=== PATIENT | female | born 1990 | race African-American/Black ===

== ENCOUNTER 2019-11-02 10:36 | Emergency (ER) | payer OTHER, SELFPAY ==
--- NOTE | ~2019-11-02 | XR_ITS ---
XR ankle RT min 3V 11/02/2019 11:04 INDICATION: Right ankle pain PROCEDURE: 4 views right ankle COMPARISON: No prior studies for comparison. FINDINGS: Fracture, dislocation or subluxation is not identified. Ankle mortise intact. Small degener ative calcaneal enthesophyte. The soft tissues appear within normal limits. No foreign bodies are id entified. IMPRESSION: 1: NO ACUTE BONE OR JOINT ABNORMALITY IDENTIFIED. Reviewed, dictated and finalized at location A.
--- NOTE | 2019-11-02 10:49 | ED.LOWEXIN ---
HPI - Extremity Injury (Lower) General Chief Complaint: Extremity Injury, Lower Stated Complaint: ankle injury Time Seen by Provider: 11/02/19 11:06 Source: patient and RN notes reviewed Mode of arrival: ambulatory Limitations: no limitations History of Present Illness HPI Narrative: 29-year-old female presents with concern for right ankle injury. Reports yesterday while at work she slipped and twisted her ankle causing pain to the lateral ankle and dorsal aspect of the foot. She denies decreased strength, decreased sensation. complaint: ankle injury Related Data Home Medications Medication Instructions Recorded Confirmed Allergy Med. 11/02/19 Bc Pill 11/02/19 Depression 11/02/19 Stool Softner 11/02/19 Allergies Allergy/AdvReac Type Severity Reaction Status Date / Time codeine Allergy Unknown Rash Verified 08/26/18 10:23 morphine AdvReac Intermediate makes me Verified 08/26/18 14:13 faint Review of Systems Review of Systems: Narrative: CONSTITUTIONAL: Denies malaise, chills, sweats, or fever. CARDIOVASCULAR: Denies chest pain, palpitations RESPIRATORY: Denies dyspnea. SKIN: Denies bruising, redness MUSCULOSKELETAL: Reports right lateral ankle pain, right dorsal foot pain NEUROLOGIC: Denies numbness, weakness All systems reviewed & are unremarkable except as noted in HPI and below PMFSH Comments At time of signature, agree with nursing past medical, surgical, social and family history. There is no relevant family history pertinent to the presenting complaint Exam Narrative: Exam Narrative: GENERAL: Well-appearing, well-nourished, and in no acute distress. HEAD: Normocephalic, atraumatic. EYES: PERRLA, conjunctivae clear NECK: Supple. CHEST: Speaks in full sentences. No respiratory distress. HEART: Regular rate and rhythm. Normal and equal peripheral pulses. EXTREMITIES: Right ankle, foot, digits have normal strength and sensation, normal range of motion. Small amount of right lateral ankle edema 5/5 strength with digit and ankle flexion and extension. Normal sensation with sensitivity to light touch and pain. No open wounds, no skin tenting, no devitalized tissue or atrophy, no trophic changes, no ecchymosis, no obvious deformity, alignment normal, no point tenderness, nearby joints and structures intact. Distal pulses palpable and equal bilaterally, skin warm, dry, pink. Capillary refill less than 3 seconds. SKIN: Warm, dry, no rash. NEURO: Alert and oriented x3. PSYCH: Normal mood and affect Course Course Emergency Course: Patient is aware of diagnosis, understands and agrees to treatment plan. Anticipatory guidance given. Patient agrees to follow-up as directed and is aware of reasons to seek care at the emergency department. Portions of this record may have been created with voice recognition software Vital Signs Vital signs: Vital Signs Temperature 97.8 F 11/02/19 10:54 Pulse Rate 79 11/02/19 10:54 Respiratory Rate 16 11/02/19 10:54 Blood Pressure 125/78 11/02/19 10:54 Pulse Oximetry 100 11/02/19 10:54 Temperature 97.8 F 11/02/19 10:54 Pulse Rate 79 11/02/19 10:54 Respiratory Rate 16 11/02/19 10:54 Blood Pressure 125/78 11/02/19 10:54 Pulse Oximetry 100 11/02/19 10:54 Reviewed. MDM - Extremity Injury (Lower) MDM Narrative Medical decision making narrative: Patients injury and/or pain is consistent with musculoskeletal etiology. No signs of neurological or vascular compromise on exam. Compartments and tissues are soft without signs of compartment syndrome. Pain is felt appropriate for further evaluation on an outpatient basis. Differential Diagnosis Differential diagnosis: Likely ankle sprain and strain and ankle fracture Imaging Data My impression: Images reviewed, interpreted by radiologist, agree, see report. Radiologist's impression: XR ankle RT min 3V 11/02/2019 11:04 INDICATION: Right ankle pain PROCEDURE: 4 views right ankle C
[2019-11-02 10:54] VITALS: BP 125/78; PULSE 79; RESP 16; TEMP 36.6; O2SAT 100
== END 2019-11-02 11:21 | disposition home or self-care (01) ==
PROVIDERS: Emergency Provider Nurse Practitioner
DX: S96.911A Strain of unspecified muscle and tendon at ankle and foot level, right foot, initial encounter (principal); S93.401A Sprain of unspecified ligament of right ankle, initial encounter; X50.9XXA Other and unspecified overexertion or strenuous movements or postures, initial encounter; W18.40XA Slipping, tripping and stumbling without falling, unspecified, initial encounter
CPT/HCPCS: 73610; 99213; G0463

== ENCOUNTER 2019-11-22 07:21 | Inpatient (IN) | payer OTHER, SELFPAY ==
[2019-11-22] VITALS (23 sets, daily range): BP systolic 115–168; BP diastolic 62–103; PULSE 74–104; RESP 12–32; TEMP 36–36.8; O2SAT 97–100; BMI 38.1
--- NOTE | ~2019-11-22 | XR_ITS ---
XR chest 1V portable DATE: 11/24/2019 13:53 INDICATION: Shortness of breath TECHNIQUE: Portable upright AP chest on 11/24/2019 at 1351 hours COMPARISON: 11/23/2019 portable AP chest at 0855 hours FINDINGS: Normal heart size. No hilar or mediastinal enlargement. No pulmonary infiltrate or consolid ation, pleural effusion or pulmonary vascular congestion or pneumothorax. IMPRESSION: No active cardiopulmonary disease Reviewed, dictated and finalized at location A.
--- NOTE | ~2019-11-22 | US_ITS ---
US venous doppler [facility] DATE: 11/24/2019 14:43 INDICATION: Bilateral leg pain, sensitivity TECHNIQUE: Real-time and color flow imaging and Doppler analysis of the veins of the lower extremitie s COMPARISON: None FINDINGS: The greater saphenous veins are patent. There is spontaneous and phasic flow and normal aug mentation and color flow signal and normal compression of the deep veins of both lower extremities. IMPRESSION: No evidence of deep venous thrombosis of the lower extremities Reviewed, dictated and finalized at Location A. Reviewed, dictated and finalized at location A.
--- NOTE | ~2019-11-22 | XR_ITS ---
XR chest 1V portable DATE: 11/22/2019 07:47 INDICATION: Respiratory failure. Asthma. TECHNIQUE: Portable upright AP chest on 11/22/2019 at 0745 hours COMPARISON: 08/26/2018 portable AP chest at 1047 FINDINGS: Normal heart size. No hilar or mediastinal enlargement. The lungs appear normally inflated. No pulmonary infiltrate or consolidation, pleural effusion or pulmonary vascular congestion or pneum othorax is evident. IMPRESSION: No active cardiopulmonary disease Reviewed, dictated and finalized at location A.
--- NOTE | ~2019-11-22 | XR_ITS ---
EXAMINATION: XR chest 1V portable DATE: 11/23/2019 08:58 INDICATION: Chest pain and shortness of breath TECHNIQUE: frontal view of the chest was obtained. COMPARISON: Chest radiograph dated 11/22/2019 FINDINGS: Patient is rotated slightly towards the right. Elevation of the right hemidiaphragm with decreased ri ght lung volume. No focal airspace opacities, pulmonary edema, pleural effusion or pneumothorax. The cardiomediastinal silhouette is normal. IMPRESSION: 1. Elevation of the right hemidiaphragm. No other acute cardiopulmonary disease. Reviewed, dictated and finalized at location A. IMPRESSION: 1. Elevation of the right hemidiaphragm. No other acute cardiopulmonary disease .
--- NOTE | ~2019-11-22 | XR_ITS ---
XR UGI w esoph water soluble DATE: 11/25/2019 14:49 INDICATION: Periodic postprandial vomiting TECHNIQUE: Single contrast examination with water-soluble contrast material 2.4 minutes fluoroscopy time DAP: 32.453 35 images COMPARISON: None FINDINGS: No stricture, intraluminal mass lesion or obstruction of the esophagus is evident. There is no abnormal distention of the esophagus or stomach no obvious intraluminal mass lesion or ulceration of the stomach is evident. The patient vomited the contrast material, without sufficient contrast ma terial reaching the duodenum for evaluation of the duodenal bulb or C-loop. No abnormal bowel distent ion is evident. Surgical clips, right upper quadrant, consistent with cholecystectomy. IMPRESSION: Limited examination due to vomiting Reviewed, dictated and finalized at Location A. Reviewed, dictated and finalized at location A.
[2019-11-22] MEDS: ALBUTEROL SULFATE NEB 2.5 MG/3 ML INH 5 MG (07:23)
--- NOTE | 2019-11-22 07:29 | ED.SOB ---
HPI - SOB/Dyspnea General Chief Complaint: Shortness of Breath/Dyspnea Stated Complaint: SOB Time Seen by Provider: 11/22/19 07:23 Source: patient Mode of arrival: EMS Limitations: clinical condition History of Present Illness HPI Narrative: Patient is a 29-year-old female who presents to the emergency department with complaint of shortness of breath. Patient has known history of asthma. Patient found by EMS to be in respiratory distress. Patient was given nebulizer treatment in route by EMS. Patient oxygen saturations in the 90s. Patient reports her symptoms started this morning. Patient reports a cough and denies any fever. History is limited as patient is in respiratory distress. She does have a known history of asthma and has been hospitalized with status asthmaticus requiring BiPAP in the past. Patient denies any recent illness or sick contacts. MD elicited complaint: shortness of breath Pertinent past history: asthma Onset (ago): hour(s) Timing: constant Associated symptoms: cough Treatment prior to arrival: oxygen and bronchodilator Related Data Home Medications Medication Instructions Recorded Confirmed albuterol sulfate 2 puff INHALATION QID PRN 11/22/19 11/22/19 albuterol sulfate 2.5 mg INHALATION Q6H PRN 11/22/19 11/22/19 bisacodyl 10 mg PO ONCE PRN 11/22/19 11/22/19 budesonide [Pulmicort Flexhaler] 1 inh INHALATION DAILY 11/22/19 11/22/19 bupropion HCl 150 mg PO QAM 11/22/19 diphenhydramine HCl 25 mg PO Q6H PRN 11/22/19 11/22/19 docusate sodium 100 mg PO BID 11/22/19 11/22/19 fenofibrate 160 mg PO DAILY 11/22/19 11/22/19 ibuprofen 600 mg PO Q6H PRN 11/22/19 montelukast 10 mg PO DAILY 11/22/19 11/22/19 norgestimate-ethinyl estradiol 1 tablet PO DAILY 11/22/19 11/22/19 omega [id number]-dpb-fish oil [Fish Oil] 2 cap PO BID 11/22/19 11/22/19 ondansetron 4 mg PO Q8H PRN 11/22/19 11/22/19 pantoprazole 40 mg PO QAM 11/22/19 11/22/19 prochlorperazine [Compro] 25 mg ME Q12H PRN 11/22/19 11/22/19 sertraline 100 mg PO DAILY 11/22/19 11/22/19 Allergies Allergy/AdvReac Type Severity Reaction Status Date / Time codeine Allergy Unknown Rash Verified 11/22/19 09:07 morphine AdvReac Intermediate makes me Verified 11/22/19 09:07 faint Review of Systems Review of Systems: All systems reviewed & are unremarkable except as noted in HPI and below (Limited due to respiratory distress) Constitutional: Constitutional: Denies fever(s) Respiratory: Respiratory: Reports cough, Reports dyspnea and Reports wheezing PMFSH Past Medical History Medical History ADHD Asthma Autism spectrum disorder Depression GERD (gastroesophageal reflux disease) Mild intellectual disability Seborrheic dermatitis Sleep apnea Surgical History Surgical History History of cholecystectomy History of strabismus surgery Family History Family History Mother Diabetes mellitus Father Unknown family medical history Social History Social History (Updated 11/22/19 @ 13:41 by Karel Connell MD) Social History: Patient lives in a fci; she has her own room. She denies tobacco, alcohol or drug use. She is a full code. She nominates her mother to be the individual who would make medical decisions for her if she is unable. Smoking status: Never smoker Alcohol intake: never Substance use: never Substance use type: does not use Gender identity (if verbalized by the patient): Female Spiritual care concerns: No Exam Const: General: cooperative, no acute distress and alert Nutritional Appearance: obese Orientation/consciousness: patient oriented x3 Limitations: no limitations HENMT: Mouth: Yes lip normal and Yes moist mucous membranes Resp: Effort & Inspection: labored, respiratory distress, retractions, tachypneic, uses accessory muscles and prolong
[2019-11-22] MEDS: ALBUTEROL SULFATE NEB 2.5 MG/0.5 ML INH 15 MG INHALATION ×2 (07:30→22:00)
[2019-11-22] MEDS: IPRATROPIUM BR 0.02% INH SOLN 0.5 MG/2.5 ML VIAL 1.5 MG INHALATION (07:30)
[2019-11-22 07:37] LABS: Alveolar/Arterial O2 Gradient 642.3 mmHg; Base Excess ABG 0.1 mEq/l (+/-2.0); Fractional Inspired Oxygen 100 %; Oxygen Content ABG 7.6 %vol (16.0-22.0); Oxyhemoglobin 38.8 % THb (90.0-100.0); PCO2 ABG 46.9 mmHg (35.0-45.0); Total Hemoglobin 13.9 g/dL (12.0-18.0); pH ABG 7.362 (7.350-7.450)
[2019-11-22] MEDS: MAGNESIUM SULF 2 GM/WATER 50ML 2 GM/50 ML BAG IVPB (07:38)
[2019-11-22] MEDS: methylPREDNISolone SOD SUCC 125 MG VIAL IV PUSH (07:39)
[2019-11-22 07:42] LABS: Oxygen Saturation ABG 39.7 % (95.0-100.0); PO2 ABG 23.8 mmHg (80.0-100.0)
[2019-11-22 07:43] LABS: Device NON-REBREATHER MASK; Modified Allen's Test Pass; Site Drawn RIGHT RADIAL
--- NOTE | 2019-11-22 07:49 | ECG_ITS ---
Measurements Intervals [place] Rate: 108 P: 56 TN: 134 QRS: 50 QRSD: 89 T: 60 QT: 332 QTc: 446 Interpretive Statements SINUS TACHYCARDIA ATRIAL PREMATURE COMPLEXES NONSPECIFIC T-WAVE ABNORMALITY- DIFFUSE LEADS BASELINE ARTIFACT- I, II, III, AVR, AVL, AVF, V4-V6 ABNORMAL ECG Electronically Signed On 11-22-2019 8:13:31 CDT by José Miguel Escobar D.O.
[2019-11-22 07:53] LABS: Alveolar/Arterial O2 Gradient 42.6 mmHg; Base Excess ABG -1.4 mEq/l (+/-2.0); Carboxyhemoglobin 0.3 % THb (0-2.0); Fractional Inspired Oxygen 100 %; HCO3 ABG 19.6 mEq/l (22.0-26.0); Methemoglobin ABG 0.3 %THb (0-1.5); Oxygen Content ABG 20.4 %vol (16.0-22.0); Oxygen Saturation ABG 99.9 % (95.0-100.0); Oxyhemoglobin 98.7 % THb (90.0-100.0); PO2 ABG 646.4 mmHg (80.0-100.0); PO2 FiO2 Ratio Arterial Blood 6.46 %; Reduced Hemoglobin 0.7 %THb (0-5.0); Total Hemoglobin 13.4 g/dL (12.0-18.0)
[2019-11-22 07:54] LABS: Device NON-INVASIVE VENT; Non-Invasive Expiratory Pressure 5 CMH2O; Non-Invasive Inspiratory Pressure 15 CMH2O; Non-Invasive Vent Rate 12 /MIN; Site Drawn RIGHT BRACHIAL
[2019-11-22 08:49] LABS: Basophils Percent Auto 0.4 % (0.2-1.2); Eosinophils Absolute Auto 0.1 K/mm3 (0-0.3); Eosinophils Percent Auto 1.6 % (0-4.4); Hemoglobin 12.2 g/dL (12.0-15.0); Immature Granulocyte Absolute 0.04 K/mm3 (0.00-0.031); Immature Granulocyte Percent A 0.7 % (0-0.5); Lymphocytes Absolute Auto 2.49 K/mm3 (0.9-3.2); Lymphocytes Percent Auto 44.7 % (18.3-44.2); Mean Corpuscular HGB Conc 33.9 g/dl (32-36); Mean Corpuscular Hemoglobin 31.1 pg (26-34); Mean Corpuscular Volume 91.8 fl (80-100); Mean Platelet Volume 10.2 fl (7.4-10.4); Monocytes Absolute Auto 0.4 K/mm3 (0.1-0.6); Monocytes Percent Auto 6.8 % (2.6-8.5); Neutrophils Absolute Auto 2.6 K/mm3 (1.3-6.7); Neutrophils Percent Auto 45.8 % (45.5-73.1); Platelet Count Result 453 k/mm3 (150-375); Red Blood Count 3.92 M/mm3 (4.2-5.4); Red Cell Distribution Width 12.5 % (11.5-14.5); White Blood Count 5.6 K/mm3 (4.5-10.0)
[2019-11-22 09:12] LABS: Alanine Aminotransferase 22 U/L (4-35); Albumin Level 3.8 g/dL (3.5-5.1); Alkaline Phosphatase 58 U/L (38-126); Aspartate Amino Transferase 28 U/L (14-36); Bilirubin,Total 0.3 mg/dL (0.2-1.3); Blood Urea Nitrogen 9 mg/dL (7-17); Calcium 8.9 mg/dL (8.4-10.2); Carbon Dioxide 26 mmol/L (22-30); Chloride 106 mmol/L (98-107); Estimated CRCL calculation 84 ml/min; Estimated Glomerular Filt Rate > 60; Glucose 109 mg/dL (65-105); Potassium 3.3 mmol/L (3.4-5.0); Sodium 135 mmol/L (137-145)
--- NOTE | 2019-11-22 11:04 | PC.NURSE ---
COVID swab obtained and sent to the lab.
--- NOTE | 2019-11-22 11:42 | ADMGEN ---
This patient, Radha Salazar, was admitted to Intensive Care Unit-2. Patient/family oriented to hospital policies and general routines including ID bracelet, bed and alarms, visiting hours, pain management, procedures, bathroom and other care routines, personal items, smoking policy, room service/diet, and visiting hours. Valuables list has been completed. Information on how to activate the Rapid Response Team has been discussed. Patient/Family are encouraged to report perceived risks to care and to ask questions if they do not understand what they are told or what they should do.
--- NOTE | 2019-11-22 12:47 | PM.IMHP ---
H&P: HPI History of Present Illness Chief complaint: acute respiratory failure,status asthmaticus Narrative: Radha Salazar is a 29 year old female with asthma, JANIA and intellectual disability here for SOB. Pt was diagnosed with asthma at 7 years of age. She is compliant with her asthma medication. She does use inhaled steroids and has a rescue inhaler. Her last exacerbation was here August 2018. She has not been intubated before but did require BiPAP at that hospitalization. She has not required any oral steroid since then. She uses her rescue inhaler 1 to 2 times a week on average. This morning around 5:00 a.m. patient awoke, took a shower and then sprayed a perfume on her body. She did return to bed and slept for about an hour but when she woke, she had tightness in her chest and difficulty breathing. She try to rescue inhaler without benefit. EMS was contacted. EMS found the patient respiratory distress. She is given nebulizer treatment. Pulse ox was in the 90% range. She was brought to the emergency room for evaluation. She denies any symptoms over the past few days prior to this morning. She denies any fever or chills. She denies any allergy symptoms. She is compliant with her CPAP. No sick contacts. She does have a cough productive yellow sputum. In the ED, patient was tachypneic at respiratory rate of 32 and tachycardic with the pulse 104. ABG showed pH 7.36 with a PCO2 of 47 and PO2 24 (mixed venous gas). CXR was clear. Patient was treated hour long nebulizer treatment, magnesium and IV steroids. She was placed on BiPAP. Patient was admitted for further care. Since admission, patient was able to be weaned off of BiPAP currently comfortable on 2 L. she does have nausea today but this is not uncommon for the patient. She states she has nausea chronically usually before eating but occasionally after eating as well. She does have issues with constipation but no diarrhea. No abdominal pain. Review of Systems Review of Systems: Narrative: Gen - No fever or chills Eye - no double vision or vision changes ENT - no hearing loss, tinnitus, odynophagia or dysphagia CV -as above Pulm -as above GI -as above - no dysuria or hematuria. ANIMAL CARE TECHNICIAN - She is on control and her periods are regular. She is sexually active and they use condoms as well. Neuro -she had some mild numbness in the right hand earlier today but that has resolved. There has been no numbness, tingling or weakness in her hands or legs recently. Psych -she has depression and anxiety. Symptoms have been well controlled. All systems reviewed & are unremarkable except as noted in HPI and below PMFSH Past Medical History Medical History ADHD Asthma Autism spectrum disorder Depression GERD (gastroesophageal reflux disease) Mild intellectual disability Seborrheic dermatitis Sleep apnea Surgical History Surgical History History of cholecystectomy History of strabismus surgery Family History Family History Mother Diabetes mellitus Father Unknown family medical history Social History Social History (Updated 11/22/19 @ 13:41 by Karel Connell MD) Social History: Patient lives in a care home; she has her own room. She denies tobacco, alcohol or drug use. She is a full code. She nominates her mother to be the individual who would make medical decisions for her if she is unable. Smoking status: Never smoker Alcohol intake: never Substance use: never Substance use type: does not use Gender identity (if verbalized by the patient): Female Spiritual care concerns: No Meds Home Medications and Allergies Home Medications Medication Instructions Recorded Confirmed Type albuterol sulfate 2 puff INHALATION QID PRN 11/22/19 11/22/19 History albuterol sulfate 2.
[2019-11-22] MEDS: ONDANSETRON INJ 4 MG/2 ML VIAL IV PUSH ×3 (13:20→21:53)
--- NOTE | 2019-11-22 13:21 | PC.NURSE ---
Addendum entered by Neo Bermudez RN 11/22/19 13:22: Patient completed lunch. Complain of nausea, large emesis noted. Zofran IVP x1 given. MD aware. Original Note: MD to bedside. Patient completed keysha
[2019-11-22 14:32] LABS: Beta HCG Quantitative < 2.39 mIU/ML
[2019-11-22] MEDS: ENOXAPARIN 40 MG/0.4 ML SYRINGE SUB-Q (15:37)
[2019-11-22] MEDS: PANTOPRAZOLE SODIUM IV 40 MG VIAL IV PUSH (15:37)
[2019-11-22] MEDS: methylPREDNISolone SOD SUCC 125 MG VIAL 60 MG IV PUSH ×2 (17:05→23:41)
[2019-11-22] MEDS: ALBUTEROL SULFATE (*SP) AEROSOL 1 PUFF 2 PUFF INHALATION ×2 (17:21→21:00)
--- NOTE | 2019-11-22 21:21 | PC.NURSE ---
Patient complaining of being sob, tight and wheezing. No relief from Inhaler. Carol Basilio bedside to see patient. order for Neb treatment
--- NOTE | 2019-11-22 21:46 | PC.NURSE ---
Partial relief from Neb treatment. Hour long treatment ordered from Carol RAMOS. Awaiting treatment
[2019-11-23] VITALS (20 sets, daily range): BP systolic 105–135; BP diastolic 67–84; PULSE 58–96; RESP 14–32; TEMP 36.3–36.7; O2SAT 97–100
[2019-11-23 04:37] LABS: Blood Urea Nitrogen 9 mg/dL (7-17); Calcium 9.1 mg/dL (8.4-10.2); Carbon Dioxide 25 mmol/L (22-30); Chloride 105 mmol/L (98-107); Estimated CRCL calculation 105 ml/min; Estimated Glomerular Filt Rate > 60; Glucose 131 mg/dL (65-105); Potassium 4.1 mmol/L (3.4-5.0); Sodium 136 mmol/L (137-145)
[2019-11-23] MEDS: methylPREDNISolone SOD SUCC 125 MG VIAL 60 MG IV PUSH ×3 (05:10→21:32)
[2019-11-23] MEDS: ALBUTEROL SULFATE (*SP) AEROSOL 1 PUFF 2 PUFF INHALATION ×4 (08:26→19:42)
[2019-11-23] MEDS: ACETAMINOPHEN 325 MG TABLET 650 MG PO ×2 (08:45→19:39)
[2019-11-23] MEDS: DOCUSATE SODIUM 100 MG CAPSULE PO ×2 (09:04→17:46)
[2019-11-23] MEDS: SERTRALINE HCL 50 MG TABLET 100 MG PO (09:05)
[2019-11-23] MEDS: buPROPion HCL XL (24 HR) 150 MG TABCR PO (09:05)
[2019-11-23] MEDS: ENOXAPARIN 40 MG/0.4 ML SYRINGE SUB-Q (09:05)
[2019-11-23] MEDS: FENOFIBRATE 160 MG TABLET PO (09:06)
[2019-11-23] MEDS: PANTOPRAZOLE SODIUM IV 40 MG VIAL IV PUSH (09:06)
[2019-11-23] MEDS: MONTELUKAST SODIUM 10 MG TABLET PO (09:06)
[2019-11-23] MEDS: OMEGA 3 POLYUNSAT FATTY ACIDS 1 GM CAP 2 GM PO ×2 (09:07→17:45)
--- NOTE | 2019-11-23 09:13 | PM.IMPN ---
Progress Note: A&P Assessment and Plan (1) Acute respiratory failure: Qualifiers: Respiratory failure complication: hypoxia Qualified Code(s): J96.01 - Acute respiratory failure with hypoxia Code(s): J96.00 - Acute respiratory failure, unspecified whether with hypoxia or hypercapnia Status: Acute Assessment and Plan: No longer on BiPAP as she required on admission. COVID-19 testing is still pending. Patient now on room air. Additional shortness of breath this morning appears to be more likely result of anxiety. Attempted to get ABG but unsuccessful. Repeat chest x-ray personally reviewed with elevation of the right hemidiaphragm but otherwise clear. Continue albuterol HFA for now. Will continue to monitor. Telemetry reviewed on 11/23/2019 with sinus rhythm. (2) Asthma: Qualifiers: Asthma complication type: with acute exacerbation Asthma persistence: persistent Asthma severity: moderate Qualified Code(s): J45.41 - Moderate persistent asthma with (acute) exacerbation Code(s): J45.909 - Unspecified asthma, uncomplicated Status: Acute Assessment and Plan: Patient with asthma exacerbation. Repeat chest x-ray as noted above. Continue scheduled albuterol HFA. Continue Pulmicort inhaler. Will continue IV steroids but start to wean. Will not initiate IV antibiotics given her current status. Add Mucinex. Continue Singulair. Will continue to monitor. (3) Anxiety: Code(s): F41.9 - Anxiety disorder, unspecified Status: Acute Assessment and Plan: Adding to shortness of breath issues. Will add oral lorazepam as needed. Will monitor. Does also have known mild intellectual disability which may be adding to anxiety. (4) Nausea & vomiting: Qualifiers: Vomiting Intractability: non-intractable Vomiting type: unspecified Qualified Code(s): R11.2 - Nausea with vomiting, unspecified Code(s): R11.2 - Nausea with vomiting, unspecified Status: Acute Assessment and Plan: No current nausea and vomiting. IV Zofran available as needed. Beta hCG quantitative test is negative. Will continue to monitor. (5) Sleep apnea: Qualifiers: Sleep apnea type: obstructive Qualified Code(s): G47.33 - Obstructive sleep apnea (adult) (pediatric) Code(s): G47.30 - Sleep apnea, unspecified Status: Acute Assessment and Plan: Plan to resume CPAP at night while hospitalized as long as COVID-19 testing negative. Will continue to monitor. (6) GERD (gastroesophageal reflux disease): Qualifiers: Esophagitis presence: esophagitis presence not specified Qualified Code(s): K21.9 - Gastro-esophageal reflux disease without esophagitis Code(s): K21.9 - Gastro-esophageal reflux disease without esophagitis Status: Acute Assessment and Plan: Will continue IV Protonix. Will monitor. (7) Depression: Qualifiers: Active/Remission status: in remission of unspecified degree Depression Type: major depressive disorder Major depression recurrence: unspecified whether recurrent Qualified Code(s): F32.5 - Major depressive disorder, single episode, in full remission Code(s): F32.9 - Major depressive disorder, single episode, unspecified Status: Acute Assessment and Plan: Will continue home sertraline and bupropion. Will monitor. (8) DVT prophylaxis: Code(s): Z29.9 - Encounter for prophylactic measures, unspecified Status: Acute Assessment and Plan: Lovenox. Time Spent With Patient Time with patient: 15 - 25 minutes Subjective Date/time seen: 11/23/19 09:13 Interval history: Date of Service: 11/23/2019. Admitted with acute respiratory failure, asthma exacerbation. Complains of shortness of breath, chest pain and cough productive of thick sputum. Feels scared. Also complains of headache and abdominal pain. Review of Systems Cons
[2019-11-23] MEDS: LORAZEPAM 0.5 MG TABLET PO (23:45)
--- NOTE | 2019-11-23 23:50 | PC.NURSE ---
Patient having Asthma attack. States feels weak and can't breathe. Audible wheezing noted. O2 sat 99%. PRN rescue inhaler given. No relief. Order for 1 hour neb treatment ordered. ICU respiratory notified.
[2019-11-23] MEDS: ALBUTEROL SULFATE NEB 2.5 MG/0.5 ML INH 15 MG INHALATION (23:57)
[2019-11-24] VITALS (18 sets, daily range): BP systolic 114–139; BP diastolic 61–82; PULSE 62–110; RESP 14–30; TEMP 36.3–37.1; O2SAT 97–100
--- NOTE | 2019-11-24 02:20 | PC.NURSE ---
Patient continues to sleep comfortably in bed, no distress noted.
[2019-11-24] MEDS: methylPREDNISolone SOD SUCC 125 MG VIAL 60 MG IV PUSH ×3 (05:44→21:11)
--- NOTE | 2019-11-24 06:00 | PC.NURSE ---
Patient to 231-1. IMU. Report given to Kadi TIJERINA. No questions. All belongings transferred.
--- NOTE | 2019-11-24 06:40 | PC.NURSE ---
This patient, Radha Salazar, was received from ICU-2 on 11/24/19 at 0600. REPORT FROM TERRY TIJERINA. Personal belongings list checked and signed. Patient/family oriented to unit policies and routines
[2019-11-24 08:11] LABS: Hemoglobin 13.6 g/dL (12.0-15.0); Mean Corpuscular HGB Conc 33.2 g/dl (32-36); Mean Corpuscular Hemoglobin 31.7 pg (26-34); Mean Corpuscular Volume 95.6 fl (80-100); Mean Platelet Volume 10.5 fl (7.4-10.4); Platelet Count Result 489 k/mm3 (150-375); Red Blood Count 4.29 M/mm3 (4.2-5.4)
[2019-11-24 08:26] LABS: Blood Urea Nitrogen 12 mg/dL (7-17); Calcium 9.3 mg/dL (8.4-10.2); Carbon Dioxide 26 mmol/L (22-30); Chloride 103 mmol/L (98-107); Estimated CRCL calculation 94 ml/min; Estimated Glomerular Filt Rate > 60; Glucose 109 mg/dL (65-105); Sodium 136 mmol/L (137-145)
[2019-11-24] MEDS: ALBUTEROL SULFATE (*SP) AEROSOL 1 PUFF 2 PUFF INHALATION ×4 (08:37→19:33)
[2019-11-24] MEDS: PANTOPRAZOLE SODIUM IV 40 MG VIAL IV PUSH (10:35)
[2019-11-24] MEDS: SERTRALINE HCL 50 MG TABLET 100 MG PO (10:35)
[2019-11-24] MEDS: OMEGA 3 POLYUNSAT FATTY ACIDS 1 GM CAP 2 GM PO ×2 (10:35→16:43)
[2019-11-24] MEDS: MONTELUKAST SODIUM 10 MG TABLET PO (10:36)
[2019-11-24] MEDS: FENOFIBRATE 160 MG TABLET PO (10:37)
[2019-11-24] MEDS: ENOXAPARIN 40 MG/0.4 ML SYRINGE SUB-Q (10:37)
[2019-11-24] MEDS: DOCUSATE SODIUM 100 MG CAPSULE PO ×2 (10:37→16:46)
[2019-11-24] MEDS: buPROPion HCL XL (24 HR) 150 MG TABCR PO (10:37)
[2019-11-24] MEDS: ACETAMINOPHEN 325 MG TABLET 650 MG PO (13:23)
[2019-11-24 13:53] LABS: Alveolar/Arterial O2 Gradient 12.6 mmHg; Base Excess ABG -4.3 mEq/l (+/-2.0); Fractional Inspired Oxygen 21 %; HCO3 ABG 19.6 mEq/l (22.0-26.0); Oxygen Content ABG 19.4 %vol (16.0-22.0); Oxygen Saturation ABG 97.5 % (95.0-100.0); Oxyhemoglobin 96.7 % THb (90.0-100.0); PCO2 ABG 32.8 mmHg (35.0-45.0); PO2 ABG 97.9 mmHg (80.0-100.0); PO2 FiO2 Ratio Arterial Blood 4.66 %; Total Hemoglobin 14.2 g/dL (12.0-18.0); pH ABG 7.395 (7.350-7.450)
[2019-11-24 13:56] LABS: Device ROOM AIR; Modified Allen's Test Pass; Site Drawn RIGHT RADIAL
[2019-11-24] MEDS: IPRATROPIUM BR 0.02% INH SOLN 0.5 MG/2.5 ML VIAL INHALATION (14:00)
[2019-11-24] MEDS: ALBUTEROL SULFATE NEB 2.5 MG/0.5 ML INH INHALATION (14:00)
--- NOTE | 2019-11-24 14:05 | PM.IMPN ---
Progress Note: A&P Assessment and Plan (1) Acute respiratory failure: Qualifiers: Respiratory failure complication: hypoxia Qualified Code(s): J96.01 - Acute respiratory failure with hypoxia Code(s): J96.00 - Acute respiratory failure, unspecified whether with hypoxia or hypercapnia Status: Acute Assessment and Plan: Required BiPAP on admission but quickly weaned off. Had already weaned to room air prior to episode this afternoon. COVID-19 testing negative. Previous chest x-rays clear. Repeat STAT chest x-ray done with episode this afternoon also clear. STAT ABG ordered with pCO2 32.8 and normal pH. PO2 97.9. Suspect patient becomes anxious with coughing. Intellectual disability also adding to situation. Albuterol and Atrovent nebulizer given x1. Otherwise will continue albuterol HFA and other home medications for asthma. Telemetry reviewed on 11/24/2019 with sinus rhythm. Venous Dopplers ordered of the lower extremities with no DVT seen. Continue to monitor. Total time spent in critical care today 35 minutes. (2) Asthma: Qualifiers: Asthma complication type: with acute exacerbation Asthma persistence: persistent Asthma severity: moderate Qualified Code(s): J45.41 - Moderate persistent asthma with (acute) exacerbation Code(s): J45.909 - Unspecified asthma, uncomplicated Status: Acute Assessment and Plan: Patient with asthma exacerbation. Chest x-rays remains clear. Will continue scheduled albuterol HFA, Pulmicort inhaler and Singulair. Continue Mucinex. Will leave IV steroids at current rate today. Will add Tessalon Perles to help with cough. Will monitor. (3) Anxiety: Code(s): F41.9 - Anxiety disorder, unspecified Status: Acute Assessment and Plan: Adding to shortness of breath issues. Did have lorazepam before midnight last night but has not had since. Will leave lorazepam as needed. Will monitor. Does also have mild intellectual disability adding to current situation. (4) Nausea & vomiting: Qualifiers: Vomiting Intractability: non-intractable Vomiting type: unspecified Qualified Code(s): R11.2 - Nausea with vomiting, unspecified Code(s): R11.2 - Nausea with vomiting, unspecified Status: Acute Assessment and Plan: No current nausea and vomiting. IV Zofran remains available as needed. Beta hCG quantitative test is negative. Will continue to monitor. (5) Sleep apnea: Qualifiers: Sleep apnea type: obstructive Qualified Code(s): G47.33 - Obstructive sleep apnea (adult) (pediatric) Code(s): G47.30 - Sleep apnea, unspecified Status: Acute Assessment and Plan: Will resume CPAP with COVID-19 testing negative. Will monitor. (6) GERD (gastroesophageal reflux disease): Qualifiers: Esophagitis presence: esophagitis presence not specified Qualified Code(s): K21.9 - Gastro-esophageal reflux disease without esophagitis Code(s): K21.9 - Gastro-esophageal reflux disease without esophagitis Status: Acute Assessment and Plan: Will continue IV Protonix. Will monitor. (7) Depression: Qualifiers: Active/Remission status: in remission of unspecified degree Depression Type: major depressive disorder Major depression recurrence: unspecified whether recurrent Qualified Code(s): F32.5 - Major depressive disorder, single episode, in full remission Code(s): F32.9 - Major depressive disorder, single episode, unspecified Status: Acute Assessment and Plan: Will continue home sertraline and bupropion. Will monitor. (8) DVT prophylaxis: Code(s): Z29.9 - Encounter for prophylactic measures, unspecified Status: Acute Assessment and Plan: Lovenox. Time Spent With Patient Time with patient: 15 - 25 minutes Subjective Date/time seen: 11/24/19 14:05 Interval history: Date of Service:
[2019-11-24] MEDS: BENZONATATE 100 MG CAPSULE 200 MG PO ×2 (16:47→21:11)
[2019-11-25] VITALS (25 sets, daily range): BP systolic 119–152; BP diastolic 77–109; PULSE 58–110; RESP 12–22; TEMP 35.7–36.6; O2SAT 77–100; BMI 10.0
[2019-11-25] MEDS: ALBUTEROL SULFATE (*SP) AEROSOL 1 PUFF 2 PUFF INHALATION ×2 (00:16→08:57)
[2019-11-25] MEDS: LORAZEPAM 0.5 MG TABLET PO (00:27)
[2019-11-25] MEDS: ALBUTEROL SULFATE NEB 2.5 MG/0.5 ML INH 15 MG INHALATION (00:29)
[2019-11-25] MEDS: BENZONATATE 100 MG CAPSULE 200 MG PO ×2 (05:03→20:02)
[2019-11-25] MEDS: methylPREDNISolone SOD SUCC 125 MG VIAL 60 MG IV PUSH ×2 (05:03→20:01)
[2019-11-25 05:26] LABS: Blood Urea Nitrogen 16 mg/dL (7-17); Carbon Dioxide 25 mmol/L (22-30); Chloride 102 mmol/L (98-107); Estimated CRCL calculation 113 ml/min; Estimated Glomerular Filt Rate > 60; Glucose 119 mg/dL (65-105); Potassium 4.3 mmol/L (3.4-5.0); Sodium 136 mmol/L (137-145)
[2019-11-25 05:30] LABS: Hematocrit 39.3 % (37.0-47.0); Hemoglobin 12.9 g/dL (12.0-15.0); Mean Corpuscular HGB Conc 32.8 g/dl (32-36); Mean Corpuscular Hemoglobin 31.3 pg (26-34); Mean Corpuscular Volume 95.4 fl (80-100); Mean Platelet Volume 10.5 fl (7.4-10.4); Platelet Count Result 460 k/mm3 (150-375); Red Blood Count 4.12 M/mm3 (4.2-5.4); Red Cell Distribution Width 12.9 % (11.5-14.5); White Blood Count 10.7 K/mm3 (4.5-10.0)
[2019-11-25] MEDS: ENOXAPARIN 40 MG/0.4 ML SYRINGE SUB-Q (09:53)
[2019-11-25] MEDS: PANTOPRAZOLE SODIUM IV 40 MG VIAL IV PUSH (09:53)
[2019-11-25] MEDS: MONTELUKAST SODIUM 10 MG TABLET PO (09:57)
[2019-11-25] MEDS: SERTRALINE HCL 50 MG TABLET 100 MG PO (09:57)
[2019-11-25] MEDS: FENOFIBRATE 160 MG TABLET PO (09:57)
[2019-11-25] MEDS: buPROPion HCL XL (24 HR) 150 MG TABCR PO (09:57)
[2019-11-25] MEDS: OMEGA 3 POLYUNSAT FATTY ACIDS 1 GM CAP 2 GM PO ×2 (09:57→18:35)
[2019-11-25] MEDS: DOCUSATE SODIUM 100 MG CAPSULE PO ×2 (09:58→18:36)
--- NOTE | 2019-11-25 11:25 | PM.IMPN ---
Progress Note: A&P Assessment and Plan (1) Acute respiratory failure: Qualifiers: Respiratory failure complication: hypoxia Qualified Code(s): J96.01 - Acute respiratory failure with hypoxia Code(s): J96.00 - Acute respiratory failure, unspecified whether with hypoxia or hypercapnia Status: Acute Assessment and Plan: Required BiPAP on admission but quickly weaned off. Remains on room air at this time. Did require 1 hour nebulizer treatment at approximately 11:00 p.m. last night. Patient with generalized decreased breath sounds now but no wheezing. Will transition from albuterol HFA 2 nebulizer treatments to see if this helps. Continue her other home medications for asthma. COVID-19 testing is negative. Venous Dopplers of the lower extremities with no DVT seen. Telemetry reviewed on 11/25/2019 with sinus rhythm. Continue to monitor. I did speak with her mother by phone and updated on patient condition. (2) Asthma: Qualifiers: Asthma complication type: with acute exacerbation Asthma persistence: persistent Asthma severity: moderate Qualified Code(s): J45.41 - Moderate persistent asthma with (acute) exacerbation Code(s): J45.909 - Unspecified asthma, uncomplicated Status: Acute Assessment and Plan: Patient with asthma exacerbation. Chest x-rays remains clear. Will continue scheduled Pulmicort inhaler and Singulair. Transition to nebulizer treatments as noted above. Continue Mucinex. Will resume weaning IV steroids. Tessalon Perles also available for cough. Will monitor. (3) Nausea & vomiting: Qualifiers: Vomiting Intractability: non-intractable Vomiting type: unspecified Qualified Code(s): R11.2 - Nausea with vomiting, unspecified Code(s): R11.2 - Nausea with vomiting, unspecified Status: Acute Assessment and Plan: patient has been noted to have episodes of vomiting particularly after meals. IV Zofran is available as needed. Quantitative beta hCG is negative. Upper GI ordered and attempted today but patient vomited. Will decrease diet to clear liquids. GI consulted. I was also able to speak with her mother by phone who reports patient has had recurrent issues with stomach problems. She has been hospitalized at [facility] in [place] with evaluation there previously. She has been known to have intermittent episodes of vomiting in the past. Concern vomiting and chest discomfort are GI in origin and not related to respiratory status. (4) GERD (gastroesophageal reflux disease): Qualifiers: Esophagitis presence: esophagitis presence not specified Qualified Code(s): K21.9 - Gastro-esophageal reflux disease without esophagitis Code(s): K21.9 - Gastro-esophageal reflux disease without esophagitis Status: Acute Assessment and Plan: Known previous issues. Will continue IV Protonix while awaiting GI consultation. (5) Anxiety: Code(s): F41.9 - Anxiety disorder, unspecified Status: Acute Assessment and Plan: Probably adding to shortness of breath issues. Will stop lorazepam at this time. Will have some low-dose oral Xanax available at bedtime as needed. Will monitor. (6) Sleep apnea: Qualifiers: Sleep apnea type: obstructive Qualified Code(s): G47.33 - Obstructive sleep apnea (adult) (pediatric) Code(s): G47.30 - Sleep apnea, unspecified Status: Acute Assessment and Plan: CPAP ordered but not applied last night. Patient is to wear CPAP at night as well as with naps per her mother. Discussed with nursing and will ensure CPAP is used. Lack of CPAP use probably adding to drowsiness during the day. (7) Depression: Qualifiers: Active/Remission status: in remission of unspecified degree Depression Type: major depressive disorder Major depression recurrence: unspecified whether recurrent Qualified Code(s): F32.5 - Major depres
[2019-11-25] MEDS: ONDANSETRON INJ 4 MG/2 ML VIAL IV PUSH ×2 (12:53→20:00)
[2019-11-25] MEDS: ALBUTEROL SULFATE NEB 2.5 MG/0.5 ML INH 5 MG INHALATION ×2 (13:29→20:26)
--- NOTE | 2019-11-25 15:15 | PCRCNOTE ---
[address] on CPAP +14, 1510 RT went to check on pt, her CPAP unit was off. RN took off at 1405.
--- NOTE | 2019-11-25 16:24 | WPDGICN ---
Assessment and Plan Assessment and plan (1) Nausea & vomiting: Qualifiers: Vomiting type: unspecified Vomiting Intractability: non-intractable Qualified Code(s): R11.2 - Nausea with vomiting, unspecified Code(s): R11.2 - Nausea with vomiting, unspecified Status: Acute Assessment and Plan: Etiology a protracted nausea unclear. She does have rather diffuse abdominal pain at this time she is reported to have a history of GE reflux with certainly could contribute to her symptoms. Functional component may be related to her anxiety. Plan is to keep patient on IV proton pump inhibitor. Because of inability to perform the upper GI an EGD will be planned in the morning. We will follow with you. EGD will be accomplished if respiratory status is felt stable at that time. (2) Abdominal pain: Code(s): R10.9 - Unspecified abdominal pain Status: Acute (3) Obesity (BMI 30.0-34.9): Code(s): E66.9 - Obesity, unspecified Status: Acute (4) Anxiety: Code(s): F41.9 - Anxiety disorder, unspecified Status: Acute (5) Asthma: Qualifiers: Asthma severity: moderate Asthma persistence: persistent Asthma complication type: with acute exacerbation Qualified Code(s): J45.41 - Moderate persistent asthma with (acute) exacerbation Code(s): J45.909 - Unspecified asthma, uncomplicated Status: Acute GI Consult Note Consult date/time: 11/25/19 16:24 HPI: Radha Salazar is a 29 year old female seen in evaluation at the request of the hospitalist service. Patient reports abdominal pain and nausea over the last month. She has an underlying history of asthma, sleep apnea, and intellectual disability. She presented to the hospital with shortness of breath on 11/22/2019. She has had gradual improvement of her respiratory status since that time. She states since her hospital stay abdominal pain has become very prominent with protracted nausea vomiting subsequently. For this reason I have been consulted. Patient denies any fever. She denies any bleeding. She states that her bowel habits are normal. In the past apparently she was told she had GE reflux periods at the time of admission was started on Protonix intravenously with no change in symptoms. An upper GI series was attempted today but limited because recurrent vomiting. Review of Systems Review of Systems: All systems reviewed & are unremarkable except as noted in HPI and below PMFSH Past Medical History Medical History ADHD Asthma Autism spectrum disorder Depression GERD (gastroesophageal reflux disease) Mild intellectual disability Seborrheic dermatitis Sleep apnea Surgical History Surgical History History of cholecystectomy History of strabismus surgery Family History Family History Mother Diabetes mellitus Father Unknown family medical history Social History Social History Social History: Patient lives in a fpc; she has her own room. She denies tobacco, alcohol or drug use. She is a full code. She nominates her mother to be the individual who would make medical decisions for her if she is unable. Smoking status: Never smoker Alcohol intake: never Substance use: never Substance use type: does not use Gender identity (if verbalized by the patient): Female Spiritual care concerns: No Meds Home Medications and Allergies Home Medications Medication Instructions Recorded Confirmed Type albuterol sulfate 2 puff INHALATION QID PRN 11/22/19 11/22/19 History albuterol sulfate 2.5 mg INHALATION Q6H PRN 11/22/19 11/22/19 History bisacodyl 10 mg PO ONCE PRN 11/22/19 11/22/19 History budesonide [Pulmicort Flexhaler] 1 inh INHALATION DAILY 11/22/19 11/22/19 His
[2019-11-25] MEDS: ALPRAZOLAM 0.25 MG TABLET PO (20:01)
[2019-11-26] VITALS (19 sets, daily range): BP systolic 111–128; BP diastolic 44–88; PULSE 55–100; RESP 14–22; TEMP 35.8–36.2; O2SAT 60–100
[2019-11-26] MEDS: ALBUTEROL SULFATE NEB 2.5 MG/0.5 ML INH 5 MG INHALATION ×3 (02:00→13:10)
[2019-11-26] MEDS: methylPREDNISolone SOD SUCC 125 MG VIAL 60 MG IV PUSH (09:09)
[2019-11-26] MEDS: PANTOPRAZOLE SODIUM IV 40 MG VIAL IV PUSH (09:09)
[2019-11-26] MEDS: ONDANSETRON INJ 4 MG/2 ML VIAL IV PUSH (09:09)
--- NOTE | 2019-11-26 09:48 | PC.NURSE ---
Patient to GI lab via stretcher. Report given to LILLIANA Coy.
--- NOTE | 2019-11-26 10:02 | WPDANESEPPF ---
Anes - Initial Pre Proc Eval Procedure: Operation Date: 11/26/19 10:30 Proposed Procedures p Esophagogastroduodenoscopy - Bo Guerra MD Date/Time: 11/26/19 10:02 Surgeon: Jd Connell MD Pre Op Diagnosis: acute respiratory failure,status asthmaticus Patient Data Age: 29 Gender: F Height: 1.63 m Weight: 113 kg Last Vital Signs Temp 36.2 C L 11/26/19 08:00 Pulse 62 11/26/19 08:24 Resp 18 11/26/19 08:24 BP 117/62 11/26/19 08:00 Pulse Ox 97 11/26/19 08:00 Allergies Allergy/AdvReac Type Severity Reaction Status Date / Time codeine Allergy Unknown Rash Verified 11/26/19 09:58 morphine AdvReac Intermediate makes me Verified 11/26/19 09:58 faint Home Medications Medication Instructions Recorded Confirmed Type albuterol sulfate 2 puff INHALATION QID PRN 11/22/19 11/22/19 History albuterol sulfate 2.5 mg INHALATION Q6H PRN 11/22/19 11/22/19 History bisacodyl 10 mg PO ONCE PRN 11/22/19 11/22/19 History budesonide [Pulmicort Flexhaler] 1 inh INHALATION DAILY 11/22/19 11/22/19 History bupropion HCl 150 mg PO QAM 11/22/19 11/23/19 History diphenhydramine HCl 25 mg PO Q6H PRN 11/22/19 11/22/19 History docusate sodium 100 mg PO BID 11/22/19 11/22/19 History fenofibrate 160 mg PO DAILY 11/22/19 11/22/19 History ibuprofen 600 mg PO Q6H PRN 11/22/19 11/25/19 History montelukast 10 mg PO DAILY 11/22/19 11/22/19 History norgestimate-ethinyl estradiol 1 tablet PO DAILY 11/22/19 11/22/19 History omega [id number]-[id number]-fish oil [Fish Oil] 2 cap PO BID 11/22/19 11/22/19 History ondansetron 4 mg PO Q8H PRN 11/22/19 11/22/19 History pantoprazole 40 mg PO QAM 11/22/19 11/22/19 History prochlorperazine [Compro] 25 mg MO Q12H PRN 11/22/19 11/22/19 History sertraline 100 mg PO DAILY 11/22/19 11/22/19 History Patient hx anesthesia problems: none Family hx anesthesia problems: none [facility] Past Medical History Medical History (Updated 11/26/19 @ 10:06 by Jp Hutton MD) ADHD Asthma Autism spectrum disorder Depression GERD (gastroesophageal reflux disease) Mild intellectual disability Morbid obesity with BMI of 40.0-44.9, adult Seborrheic dermatitis Sleep apnea Surgical History Surgical History History of cholecystectomy History of strabismus surgery Family History Family History Mother Diabetes mellitus Father Unknown family medical history Social History Social History Social History: Patient lives in a [facility]; she has her own room. She denies tobacco, alcohol or drug use. She is a full code. She nominates her mother to be the individual who would make medical decisions for her if she is unable. Smoking status: Never smoker Alcohol intake: never Substance use: never Substance use type: does not use Gender identity (if verbalized by the patient): Female Spiritual care concerns: No Anes - Eval Final PreProcedure Day of Procedure 11/26/19 10:02 Patient weight: morbidly obese Heart: regular rate and rhythm Lungs: clear to auscultation and normal air movement Airway: Mallampati scale class II Neurological: alert and oriented Last oral intake: >/= 8 hours ASA classification: III Emergent: no Anesthetic plan: proceed Anesthesia type and monitoring: general GIVS Informed Consent: The patient's anesthetic plan and its attendant risks and benefits were discussed with the patient/family/POA. Questions were solicited and answers provided to the satisfaction of the patient/family/POA.
[2019-11-26] MEDS: LACTATED RINGERS 1,000 ML 150 ML IV CONT (10:04)
[2019-11-26] MEDS: BENZOCAINE (*SP) 60 ML SPRAY CAN (HURRICAINE) 1 SPRAY MUCOUS MEM (10:44)
--- NOTE | 2019-11-26 11:30 | PC.NURSE ---
patient returned to room following EGD.
[2019-11-26] MEDS: OMEGA 3 POLYUNSAT FATTY ACIDS 1 GM CAP 2 GM PO (11:41)
[2019-11-26] MEDS: SERTRALINE HCL 50 MG TABLET 100 MG PO (11:41)
[2019-11-26] MEDS: MONTELUKAST SODIUM 10 MG TABLET PO (11:41)
[2019-11-26] MEDS: ENOXAPARIN 40 MG/0.4 ML SYRINGE SUB-Q (11:42)
[2019-11-26] MEDS: FENOFIBRATE 160 MG TABLET PO (11:42)
[2019-11-26] MEDS: buPROPion HCL XL (24 HR) 150 MG TABCR PO (11:42)
[2019-11-26] MEDS: DOCUSATE SODIUM 100 MG CAPSULE PO (11:47)
--- NOTE | 2019-11-26 11:56 | PM.IMPN ---
Progress Note: A&P Assessment and Plan (1) Acute respiratory failure: Qualifiers: Respiratory failure complication: hypoxia Qualified Code(s): J96.01 - Acute respiratory failure with hypoxia Code(s): J96.00 - Acute respiratory failure, unspecified whether with hypoxia or hypercapnia Status: Acute Assessment and Plan: Result of asthma exacerbation. Now remaining on room air. Had no episodes of increased shortness of breath overnight but did use her CPAP. COVID-19 testing negative. Venous Dopplers of the lower extremities negative for DVT. Telemetry reviewed on 11/26/2019 with sinus rhythm. Patient is improved. Has now been able to tolerate diet after EGD. Will return to her shelter today. (2) Asthma: Qualifiers: Asthma complication type: with acute exacerbation Asthma persistence: persistent Asthma severity: moderate Qualified Code(s): J45.41 - Moderate persistent asthma with (acute) exacerbation Code(s): J45.909 - Unspecified asthma, uncomplicated Status: Acute Assessment and Plan: Patient with asthma exacerbation. Chest x-rays remains clear. Has now improved. Will continue her home Pulmicort inhaler and Singulair. Continue Mucinex and Tessalon Perles. Will transition to tapering prednisone. Remains on room air. (3) Nausea & vomiting: Qualifiers: Vomiting Intractability: non-intractable Vomiting type: unspecified Qualified Code(s): R11.2 - Nausea with vomiting, unspecified Code(s): R11.2 - Nausea with vomiting, unspecified Status: Acute Assessment and Plan: GI consulted and appreciate input. Unable to do upper GI yesterday as patient vomited. Quantitative beta hCG negative. Patient now returned from EGD with no acute findings. Suspect this is most likely from her acid reflux. Patient has been allowed to eat starting at full liquids and now regular diet which she has tolerated. Will continue Protonix. (4) GERD (gastroesophageal reflux disease): Qualifiers: Esophagitis presence: esophagitis presence not specified Qualified Code(s): K21.9 - Gastro-esophageal reflux disease without esophagitis Code(s): K21.9 - Gastro-esophageal reflux disease without esophagitis Status: Acute Assessment and Plan: Known previous issues. Will continue Protonix but orally at this point. (5) Anxiety: Code(s): F41.9 - Anxiety disorder, unspecified Status: Acute Assessment and Plan: Probably adding to shortness of breath issues. Did use low-dose Xanax last night with benefit. (6) Sleep apnea: Qualifiers: Sleep apnea type: obstructive Qualified Code(s): G47.33 - Obstructive sleep apnea (adult) (pediatric) Code(s): G47.30 - Sleep apnea, unspecified Status: Acute Assessment and Plan: Used CPAP last night. Will need to continue CPAP at night and with naps. (7) Depression: Qualifiers: Active/Remission status: in remission of unspecified degree Depression Type: major depressive disorder Major depression recurrence: unspecified whether recurrent Qualified Code(s): F32.5 - Major depressive disorder, single episode, in full remission Code(s): F32.9 - Major depressive disorder, single episode, unspecified Status: Acute Assessment and Plan: Mood stable. Will continue home sertraline and bupropion. (8) DVT prophylaxis: Code(s): Z29.9 - Encounter for prophylactic measures, unspecified Status: Acute Assessment and Plan: Lovenox. Time Spent With Patient Time with patient: 15 - 25 minutes Subjective Date/time seen: 11/26/19 11:56 Interval history: Date of Service: 11/26/2019. Admitted with acute respiratory failure, asthma exacerbation. Returned from EGD. Patient did use her CPAP last night. Feeling better today. Denies shortness of breath. Chest discomfort and approved and only slight today. No
[2019-11-26 13:53] LABS: Alanine Aminotransferase 20 U/L (4-35); Albumin Level 4.2 g/dL (3.5-5.1); Alkaline Phosphatase 54 U/L (38-126); Aspartate Amino Transferase 19 U/L (14-36); Bilirubin,Total 0.3 mg/dL (0.2-1.3); Blood Urea Nitrogen 16 mg/dL (7-17); Carbon Dioxide 25 mmol/L (22-30); Chloride 101 mmol/L (98-107); Estimated CRCL calculation 91 ml/min; Estimated Glomerular Filt Rate > 60; Glucose 100 mg/dL (65-105); Potassium 3.8 mmol/L (3.4-5.0); Sodium 136 mmol/L (137-145)
--- NOTE | 2019-11-26 20:58 | PM.DS ---
DS: Admitting Diagnosis Admitting Diagnosis Admitting Diagnosis: Acute respiratory failure with hypoxia DS: Discharge Diagnosis Discharge Diagnosis (1) Acute respiratory failure: Qualifiers: Respiratory failure complication: hypoxia Qualified Code(s): J96.01 - Acute respiratory failure with hypoxia Code(s): J96.00 - Acute respiratory failure, unspecified whether with hypoxia or hypercapnia Status: Acute (2) Asthma: Qualifiers: Asthma complication type: with acute exacerbation Asthma persistence: persistent Asthma severity: moderate Qualified Code(s): J45.41 - Moderate persistent asthma with (acute) exacerbation Code(s): J45.909 - Unspecified asthma, uncomplicated Status: Acute (3) Nausea & vomiting: Qualifiers: Vomiting Intractability: non-intractable Vomiting type: unspecified Qualified Code(s): R11.2 - Nausea with vomiting, unspecified Code(s): R11.2 - Nausea with vomiting, unspecified Status: Acute (4) GERD (gastroesophageal reflux disease): Qualifiers: Esophagitis presence: esophagitis presence not specified Qualified Code(s): K21.9 - Gastro-esophageal reflux disease without esophagitis Code(s): K21.9 - Gastro-esophageal reflux disease without esophagitis Status: Acute (5) Anxiety: Code(s): F41.9 - Anxiety disorder, unspecified Status: Acute (6) Sleep apnea: Qualifiers: Sleep apnea type: obstructive Qualified Code(s): G47.33 - Obstructive sleep apnea (adult) (pediatric) Code(s): G47.30 - Sleep apnea, unspecified Status: Acute (7) Depression: Qualifiers: Active/Remission status: in remission of unspecified degree Depression Type: major depressive disorder Major depression recurrence: unspecified whether recurrent Qualified Code(s): F32.5 - Major depressive disorder, single episode, in full remission Code(s): F32.9 - Major depressive disorder, single episode, unspecified Status: Acute DS: Summary Hospital Course Reason for hospitalization: Shortness of breath with chest tightness. Hospital Course: Date of Service of Discharge: November 26, 2019. History of Present Illness: Radha Salazar is a 29 year old female with asthma, JANIA and intellectual disability regularly living in a intermediate who presented to the emergency room with shortness of breath and chest tightness. Patient was diagnosed with asthma at age. She is compliant with her medication with last exacerbation in August 2018. She has never required intubation but has required BiPAP use. Patient had been in her usual state of health prior to this presentation. Patient reports awakening at 5:00 a.m., taking a shower and then sprayed Sineff few on her body. She returned to bed and slept for approximately 1 hour but then awakened with chest tightness and difficulty breathing. She did try to use her rescue inhaler without relief. EMS was summoned and found the patient to be in respiratory distress on their arrival. She was given nebulizer treatment. Pulse ox was still in the 90% range. No recent ill contacts. She is compliant with her CPAP. She has had a cough with discolored sputum. No fever, chills or sweats. No body aches. No nausea or vomiting. No abdominal pain. On presentation to the emergency room she was noted to be tachypneic and tachycardic. Chest x-ray was clear. She was given IV magnesium and IV steroids. Patient was placed on BiPAP and admitted for further evaluation and treatment. Course in Hospital: She was initially admitted to the IMU given the need for continuous BiPAP. COVID testing was initiated and did return as negative. She did remain in the IMU throughout her stay. Patient was initially given albuterol HFA given the COVID testing. She was maintained on IV steroids which were weaned and transitioned to oral prednisone taper prior to discharge. No antibiotics were
== END 2019-11-26 15:36 | disposition home or self-care (01) | DRG 133 ==
LOC: ANHED 10:00 → ANHICU 19:58 → ANHIMU 11-25 09:51 → ANHICU 12-01 10:23 → ANHIMU 12-01 10:23
PROVIDERS: Internal Medicine Gastroenterology; Admitting Provider Internal Medicine; Emergency Provider Emergency Medicine; PCP Physician Assistant; Visit Provider Hospitalist
PROC: 0DJ08ZZ Inspection of Upper Intestinal Tract, Via Natural or Artificial Opening Endoscopic (ICD-10-PCS; CPT 43235; principal; 2019-11-26 10:30)
DX: J96.01 Acute respiratory failure with hypoxia (principal); J45.41 Moderate persistent asthma with (acute) exacerbation; Z20.828 Contact with and (suspected) exposure to other viral communicable diseases; G47.33 Obstructive sleep apnea (adult) (pediatric); K21.9 Gastro-esophageal reflux disease without esophagitis; R11.2 Nausea with vomiting, unspecified; F32.5 Major depressive disorder, single episode, in full remission; F41.9 Anxiety disorder, unspecified; F84.9 Pervasive developmental disorder, unspecified; F79 Unspecified intellectual disabilities; Z68.42 Body mass index [BMI] 45.0-49.9, adult; E66.9 Obesity, unspecified; F90.9 Attention-deficit hyperactivity disorder, unspecified type
CPT/HCPCS: 36415; 36600; 71045; 74240; 80048; 80053; 82375; 82805; 83050; 84702; 85025; 85027; 87081; 87635; 93005; 93970; 94640; 96365; 96375; 97162; 97165; 97530; 99291; A9270; C9113; J1650; J2405; J2704; J2930; J3475; J7120; U0003

== ENCOUNTER 2019-12-14 02:31 | Emergency (ER) | payer OTHER, SELFPAY ==
[2019-12-14] VITALS (21 sets, daily range): BP systolic 106–147; BP diastolic 59–93; PULSE 89–115; RESP 12–30; TEMP 36.6–36.8; O2SAT 98–100
--- NOTE | ~2019-12-14 | XR_ITS ---
EXAMINATION: XR chest 1V portable DATE: 12/14/2019 03:26 INDICATION: Asthma presenting with shortness of breath TECHNIQUE: frontal view of the chest was obtained. COMPARISON: Chest radiograph dated 11/24/2019 FINDINGS: Small lung volumes. Pulmonary vascular congestion without braeden pulmonary edema. No focal airspace op acities, pleural effusion or pneumothorax. The cardiomediastinal silhouette is normal. Mild thoracic dextrocurvature. IMPRESSION: 1. Small lung volumes and pulmonary vascular congestion. Reviewed, dictated and finalized at location A.
[2019-12-14] MEDS: methylPREDNISolone SOD SUCC 125 MG VIAL IV PUSH (02:44)
[2019-12-14] MEDS: ALBUTEROL SULFATE NEB 2.5 MG/0.5 ML INH 10 MG INHALATION (02:47)
[2019-12-14] MEDS: IPRATROPIUM BR 0.02% INH SOLN 0.5 MG/2.5 ML VIAL 1 MG INHALATION (02:47)
--- NOTE | 2019-12-14 02:49 | PC.NURSE ---
Respiratory therapist in room.
[2019-12-14 03:02] LABS: Basophils Percent Auto 0.4 % (0.2-1.2); Eosinophils Absolute Auto 0.2 K/mm3 (0-0.3); Eosinophils Percent Auto 2.2 % (0-4.4); Hematocrit 38.7 % (37.0-47.0); Immature Granulocyte Absolute 0.03 K/mm3 (0.00-0.031); Immature Granulocyte Percent A 0.4 % (0-0.5); Lymphocytes Absolute Auto 3.45 K/mm3 (0.9-3.2); Lymphocytes Percent Auto 45.2 % (18.3-44.2); Mean Corpuscular HGB Conc 33.6 g/dl (32-36); Mean Corpuscular Hemoglobin 31.2 pg (26-34); Mean Corpuscular Volume 92.8 fl (80-100); Mean Platelet Volume 10.3 fl (7.4-10.4); Monocytes Absolute Auto 0.7 K/mm3 (0.1-0.6); Neutrophils Absolute Auto 3.3 K/mm3 (1.3-6.7); Neutrophils Percent Auto 42.8 % (45.5-73.1); Platelet Count Result 326 k/mm3 (150-375); Red Blood Count 4.17 M/mm3 (4.2-5.4); Red Cell Distribution Width 12.9 % (11.5-14.5); White Blood Count 7.6 K/mm3 (4.5-10.0)
[2019-12-14 03:04] LABS: Alveolar/Arterial O2 Gradient 47.5 mmHg; Base Excess ABG -0.4 mEq/l (+/-2.0); Fractional Inspired Oxygen 45 %; HCO3 ABG 22.8 mEq/l (22.0-26.0); Oxygen Saturation ABG 99.6 % (95.0-100.0); Oxyhemoglobin 98.4 % THb (90.0-100.0); PCO2 ABG 32.7 mmHg (35.0-45.0); PO2 ABG 236.2 mmHg (80.0-100.0); PO2 FiO2 Ratio Arterial Blood 5.25 %; Site Drawn RIGHT BRACHIAL; Total Hemoglobin 12.6 g/dL (12.0-18.0); pH ABG 7.461 (7.350-7.450)
[2019-12-14 03:05] LABS: Device OTHER DEVICE
[2019-12-14 03:11] LABS: Blood Urea Nitrogen 11 mg/dL (7-17); Calcium 9.5 mg/dL (8.4-10.2); Carbon Dioxide 25 mmol/L (22-30); Chloride 106 mmol/L (98-107); Estimated Glomerular Filt Rate > 60; Glucose 116 mg/dL (65-105); Potassium 3.4 mmol/L (3.4-5.0); Sodium 138 mmol/L (137-145)
--- NOTE | 2019-12-14 04:26 | ED.SOB ---
HPI - SOB/Dyspnea General Chief Complaint: Shortness of Breath/Dyspnea Stated Complaint: sob Time Seen by Provider: 12/14/19 02:31 History of Present Illness HPI Narrative: Patient is a 29-year-old female who presents ER with shortness of breath. Patient lives at a senior living. Feels too distressed to give a history at this time. EMS reports patient was diminished throughout night and struggling to breathe. Patient is on her second inline nebulizer treatment. Patient is never been hypoxic for EMS but they opted to give IM epinephrine to assist the patient. She did not receive any magnesium or steroids. Patient was hospitalized couple weeks ago with asthma exacerbation required BiPAP for short amount of time. She also had an EGD for persistent nausea and vomiting. Related Data Home Medications Medication Instructions Recorded Confirmed Pulmicort Flexhaler 1 inh INHALATION DAILY 11/22/19 11/22/19 albuterol sulfate 2 puff INHALATION QID PRN 11/22/19 11/22/19 albuterol sulfate 2.5 mg INHALATION Q6H PRN 11/22/19 11/22/19 bisacodyl 10 mg PO ONCE PRN 11/22/19 11/22/19 bupropion HCl 150 mg PO QAM 11/22/19 11/23/19 diphenhydramine HCl 25 mg PO Q6H PRN 11/22/19 11/22/19 docusate sodium 100 mg PO BID 11/22/19 11/22/19 fenofibrate 160 mg PO DAILY 11/22/19 11/22/19 ibuprofen 600 mg PO Q6H PRN 11/22/19 11/25/19 montelukast 10 mg PO DAILY 11/22/19 11/22/19 norgestimate-ethinyl estradiol 1 tablet PO DAILY 11/22/19 11/22/19 omega 3-ccb-the-fish oil [Fish Oil] 2 cap PO BID 11/22/19 11/22/19 ondansetron 4 mg PO Q8H PRN 11/22/19 11/22/19 pantoprazole 40 mg PO QAM 11/22/19 11/22/19 prochlorperazine [Compro] 25 mg [place] Q12H PRN 11/22/19 11/22/19 sertraline 100 mg PO DAILY 11/22/19 11/22/19 Allergies Allergy/AdvReac Type Severity Reaction Status Date / Time codeine Allergy Unknown Rash Verified 12/14/19 02:41 morphine AdvReac Intermediate makes me Verified 12/14/19 02:41 faint Review of Systems Review of Systems: ROS unobtainable: Yes unobtainable due to medical condition PMFSH Past Medical History Medical History (Updated 12/14/19 @ 05:29 by Eben Gabriel MD) ADHD Asthma Autism spectrum disorder Depression GERD (gastroesophageal reflux disease) Mild intellectual disability Morbid obesity with BMI of 40.0-44.9, adult Seborrheic dermatitis Sleep apnea Surgical History Surgical History History of cholecystectomy History of strabismus surgery Social History Social History Social History: Patient lives in a senior living; she has her own room. She denies tobacco, alcohol or drug use. She is a full code. She nominates her mother to be the individual who would make medical decisions for her if she is unable. Smoking status: Never smoker Alcohol intake: never Substance use: never Substance use type: does not use Gender identity (if verbalized by the patient): Female Spiritual care concerns: No Exam Narrative: Exam Narrative: GENERAL: Uncomfortable-appearing, well-nourished, and in mild distress. HEAD: Normocephalic, atraumatic. ENT: Mucous membranes moist. CHEST: Diffuse wheezing posterior lung hunt and clear anteriorly. Mild respiratory distress. HEART: Tachycardic and regular. Normal peripheral pulses. ABDOMEN: Soft, nontender, nondistended. EXTREMITIES: Normal range of motion. No edema. NEURO: Alert and oriented x3. PSYCH: Normal mood and affect. Course Course Emergency Course: Patient reports she felt some mild dyspnea yesterday but is only worsened tonight. She feels much better after an hour-long nebulizer treatment and IV Solu-Medrol. Patient has been up and ambulatory without hypoxia. She will be given oral prednisone prior to departure. Vital Signs Vital signs: Vital Signs Temperature 98.3 F 12/14/19 02:30 Pulse Rate 112 H 12/14/19 02:30 Respiratory Rate 30 H 12/14/19 02:30
[2019-12-14] MEDS: predniSONE 20 MG TABLET 60 MG PO (05:31)
--- NOTE | 2019-12-14 10:40 | ECG_ITS ---
Measurements Intervals [place]on Rate: 106 P: 48 TN: 147 QRS: 29 QRSD: 89 T: 85 QT: 277 QTc: 368 Interpretive Statements SINUS TACHYCARDIA NONSPECIFIC T-WAVE ABNORMALITY- ANTEROLAT/LAT LEADS BASELINE ARTIFACT- I, II, III, V3-V5 ABNORMAL ECG Electronically Signed On 12-14-2019 10:47:33 CDT by José Miguel Escobar D.O.
== END 2019-12-14 05:43 | disposition home or self-care (01) ==
PROVIDERS: Emergency Provider Emergency Medicine
DX: J45.909 Unspecified asthma, uncomplicated (principal); F90.9 Attention-deficit hyperactivity disorder, unspecified type; F84.0 Autistic disorder; K21.9 Gastro-esophageal reflux disease without esophagitis; E66.01 Morbid (severe) obesity due to excess calories; G47.30 Sleep apnea, unspecified
CPT/HCPCS: 36415; 36600; 71045; 80048; 80053; 82805; 83735; 85025; 93005; 94640; 96374; 99284; J2930; J7512

== ENCOUNTER 2019-12-14 18:03 | Emergency (ER) | payer OTHER, SELFPAY ==
--- NOTE | ~2019-12-14 | XR_ITS ---
EXAMINATION: XR chest 1V portable EXAM DATE: 12/14/2019 18:49 INDICATION: Shortness of breath, wheezing. History of asthma. TECHNIQUE: Portable AP frontal chest x-ray was obtained. Comparison is made to prior examination from earlier same day. FINDINGS: The lungs are clear. There are no pleural effusions. The cardiomediastinal silhouette is within normal limits. There is no pneumothorax suspected. The bones and soft tissues are unremarkab le. IMPRESSION: No acute cardiopulmonary findings. Reviewed, dictated and finalized at location A.
[2019-12-14 18:09] VITALS: PULSE 109; RESP 24; TEMP 36.4; O2SAT 100
--- NOTE | 2019-12-14 18:11 | ED.SOB ---
HPI - SOB/Dyspnea General Chief Complaint: Shortness of Breath/Dyspnea <Eren Horn DO - Last Filed: 12/14/19 18:13> Stated Complaint: cannot breathe <Eren Horn DO - Last Filed: 12/14/19 18:13> Time Seen by Provider: 12/14/19 18:09 <Eren Horn DO - Last Filed: 12/14/19 18:13> Source: RN notes reviewed <Eren Horn DO - Last Filed: 12/14/19 18:13> History of Present Illness HPI Narrative: Patient presents emergency department from home for shortness of breath. Patient states that she was seen here earlier this morning and states that when she was discharged she was feeling better but then again had wheezing throughout the day. Patient states that she has had a cough is been nonproductive. Denies any fevers or chills chest pain abdominal pain or any other symptoms <DO Umm Aponte Last Filed: 12/14/19 18:13> Related Data Home Medications: Home Medications Medication Instructions Recorded Confirmed Pulmicort Flexhaler 1 inh INHALATION DAILY 11/22/19 11/22/19 albuterol sulfate 2 puff INHALATION QID PRN 11/22/19 11/22/19 albuterol sulfate 2.5 mg INHALATION Q6H PRN 11/22/19 11/22/19 bisacodyl 10 mg PO ONCE PRN 11/22/19 11/22/19 bupropion HCl 150 mg PO QAM 11/22/19 11/23/19 diphenhydramine HCl 25 mg PO Q6H PRN 11/22/19 11/22/19 docusate sodium 100 mg PO BID 11/22/19 11/22/19 fenofibrate 160 mg PO DAILY 11/22/19 11/22/19 ibuprofen 600 mg PO Q6H PRN 11/22/19 11/25/19 montelukast 10 mg PO DAILY 11/22/19 11/22/19 norgestimate-ethinyl estradiol 1 tablet PO DAILY 11/22/19 11/22/19 omega 6-gly-otk-fish oil [Fish Oil] 2 cap PO BID 11/22/19 11/22/19 ondansetron 4 mg PO Q8H PRN 11/22/19 11/22/19 pantoprazole 40 mg PO QAM 11/22/19 11/22/19 prochlorperazine [Compro] 25 mg [place] Q12H PRN 11/22/19 11/22/19 sertraline 100 mg PO DAILY 11/22/19 11/22/19 <Eren Horn DO - Last Filed: 12/14/19 18:13> Allergies/Adverse Reactions: Allergies Allergy/AdvReac Type Severity Reaction Status Date / Time codeine Allergy Unknown Rash Verified 12/14/19 02:41 morphine AdvReac Intermediate makes me Verified 12/14/19 02:41 faint <Eren Horn DO - Last Filed: 12/14/19 18:13> Review of Systems Review of Systems: Narrative: Gen.: Denies fevers or chills ENT: Denies congestion Respiratory: See HPI CV: Denies chest pain or palpitations GI: Denies abdominal pain nausea, emesis or diarrhea Musculoskeletal: Denies back pain or muscle pain Neuro: Denies numbness, tingling, weakness or focal weakness Skin: Denies rash Except as documented, all other systems reviewed and negative <Eren Horn DO - Last Filed: 12/14/19 18:13> [facility] Past Medical History Medical History: Medical History ADHD Asthma Autism spectrum disorder Depression GERD (gastroesophageal reflux disease) Mild intellectual disability Morbid obesity with BMI of 40.0-44.9, adult Seborrheic dermatitis Sleep apnea <Eren Horn DO - Last Filed: 12/14/19 18:13> Surgical History Surgical History: Surgical History History of cholecystectomy History of strabismus surgery <Eren Horn DO - Last Filed: 12/14/19 18:13> Social History Social History: Social History Social History: Patient lives in a custodial; she has her own room. She denies tobacco, alcohol or drug use. She is a full code. She nominates her mother to be the individual who would make medical decisions for her if she is unable. Smoking status: Never smoker Alcohol intake: never Substance use: never Substance use type: does not use Gender identity (if verbalized by the patient): Female Spiritual care concerns: No <Eren Horn, DO - Last Filed: 12/14/19 18:13> Exam Narrative: Exam Narrative: APPEARANCE: No
[2019-12-14 18:15] VITALS: PULSE 115
[2019-12-14 18:24] VITALS: PULSE 102; RESP 24
[2019-12-14] MEDS: IPRATROPIUM BR 0.02% INH SOLN 0.5 MG/2.5 ML VIAL INHALATION (18:24)
[2019-12-14] MEDS: ALBUTEROL SULFATE NEB 2.5 MG/0.5 ML INH 5 MG INHALATION (18:24)
[2019-12-14 18:29] LABS: Alveolar/Arterial O2 Gradient 29.3 mmHg; Base Excess ABG -0.5 mEq/l (+/-2.0); Fractional Inspired Oxygen 21 %; HCO3 ABG 19.5 mEq/l (22.0-26.0); Oxygen Content ABG 17.8 %vol (16.0-22.0); Oxygen Saturation ABG 98.2 % (95.0-100.0); Oxyhemoglobin 97.1 % THb (90.0-100.0); PO2 ABG 94.8 mmHg (80.0-100.0); PO2 FiO2 Ratio Arterial Blood 4.51 %
[2019-12-14 18:30] LABS: Modified Allen's Test Pass; PCO2 ABG 21.4 mmHg (35.0-45.0); Site Drawn LEFT RADIAL; pH ABG 7.578 (7.350-7.450)
[2019-12-14 18:31] LABS: Device ROOM AIR
[2019-12-14 18:34] VITALS: PULSE 95; RESP 20
[2019-12-14 18:41] LABS: Basophils Percent Auto 0.1 % (0.2-1.2); Hematocrit 35.8 % (37.0-47.0); Hemoglobin 12.3 g/dL (12.0-15.0); Immature Granulocyte Absolute 0.01 K/mm3 (0.00-0.031); Immature Granulocyte Percent A 0.1 % (0-0.5); Lymphocytes Absolute Auto 1.01 K/mm3 (0.9-3.2); Lymphocytes Percent Auto 13.4 % (18.3-44.2); Mean Corpuscular HGB Conc 34.4 g/dl (32-36); Mean Corpuscular Hemoglobin 31.8 pg (26-34); Mean Corpuscular Volume 92.5 fl (80-100); Mean Platelet Volume 10.2 fl (7.4-10.4); Monocytes Absolute Auto 0.4 K/mm3 (0.1-0.6); Monocytes Percent Auto 4.9 % (2.6-8.5); Neutrophils Absolute Auto 6.1 K/mm3 (1.3-6.7); Neutrophils Percent Auto 81.5 % (45.5-73.1); Platelet Count Result 312 k/mm3 (150-375); Red Blood Count 3.87 M/mm3 (4.2-5.4); Red Cell Distribution Width 13.1 % (11.5-14.5); White Blood Count 7.5 K/mm3 (4.5-10.0)
[2019-12-14 18:53] LABS: Alanine Aminotransferase 25 U/L (4-35); Albumin Level 4.4 g/dL (3.5-5.1); Alkaline Phosphatase 54 U/L (38-126); Aspartate Amino Transferase 25 U/L (14-36); Bilirubin,Total 0.2 mg/dL (0.2-1.3); Blood Urea Nitrogen 9 mg/dL (7-17); Calcium 9.7 mg/dL (8.4-10.2); Carbon Dioxide 22 mmol/L (22-30); Chloride 106 mmol/L (98-107); Estimated CRCL calculation 101 ml/min; Estimated Glomerular Filt Rate > 60; Glucose 121 mg/dL (65-105); Magnesium 1.8 mg/dL (1.6-2.3); Potassium 3.8 mmol/L (3.4-5.0); Sodium 136 mmol/L (137-145)
--- NOTE | 2019-12-14 19:53 | PC.NURSE ---
Patient walked down the lucas with the pulse ox on. Her oxygen level went down to 95% after being 100%, but did not drop any lower. Her pulse was 107.
[2019-12-14 20:12] VITALS: BP 118/64; PULSE 85; RESP 18; O2SAT 100
== END 2019-12-14 20:16 | disposition home or self-care (01) ==
PROVIDERS: Emergency Medicine Emergency Medical Services; Emergency Provider Emergency Medicine
DX: J45.909 Unspecified asthma, uncomplicated (principal); F90.9 Attention-deficit hyperactivity disorder, unspecified type; F84.0 Autistic disorder; F32.9 Major depressive disorder, single episode, unspecified; K21.9 Gastro-esophageal reflux disease without esophagitis; E66.01 Morbid (severe) obesity due to excess calories; Z68.41 Body mass index [BMI] 40.0-44.9, adult; G47.30 Sleep apnea, unspecified
CPT/HCPCS: 36415; 36600; 71045; 80053; 82805; 83735; 85025; 94640; 99284